=== PATIENT | female | born 1955 | race Caucasian/White ===

== ENCOUNTER 2017-09-22 11:19 | Emergency (ER) | payer BC ==
[2017-09-22] MEDS ORDERED: NITROGLYCERIN 0.4 MG TAB SL ONE (11:31)
[2017-09-22] MEDS ORDERED: ASPIRIN 81 MG CHEWABLE CTB ONE (11:31)
[2017-09-22 11:33] VITALS: TEMP 98.6
[2017-09-22] MEDS: NITROGLYCERIN 0.4 MG TAB SL PRN ×2 (11:34→11:41)
[2017-09-22] MEDS ORDERED: ASPIRIN 81 MG CHEWABLE CTB PO STA (11:46)
[2017-09-22] MEDS ORDERED: SODIUM CHLORIDE 0.9% FLUSH 10 ML SOL IV PRN (11:46)
[2017-09-22 11:48] LABS: BASOPHILS % (AUTO) 1 % (0-3); EOSINOPHILS % (AUTO) 2 % (0-9); HEMATOCRIT 44 % (35-47); MEAN CORPUSCULAR HGB CONC 34.7 gm/dl (32.0-36.0); MEAN CORPUSCULAR VOLUME 88 fL (81-99); MONOCYTES % (AUTO) 6.5 % (0-12); NEUTROPHILS % (AUTO) 45.9 % (37-80)
[2017-09-22] MEDS ORDERED: LORAZEPAM 2 MG/ML SOL IV ONE (11:50)
[2017-09-22] MEDS ORDERED: LORAZEPAM 2 MG/ML SOL ONE (11:51)
[2017-09-22 12:04] LABS: ALBUMIN 3.9 gm/dl (3.4-5.0); ALT 21 IU/L (14-63); GLOM FILT RATE 59 mL/min (>60); POTASSIUM 3.8 mMol/L (3.5-5.1); SODIUM 144 mMol/L (136-145)
[2017-09-22 13:14] VITALS: BP 141/80; PULSE 82; RESP 25; O2SAT 97
== END 2017-09-22 13:05 | disposition home or self-care (01) ==
LOC: ED 11:19
DX: R07.89 Other chest pain (principal)
CPT/HCPCS: 71045; 80053; 82550; 84484; 85025; 85610; 85730; 93005; 96374; 99284; 99285; J2060; A9270-GY